=== PATIENT | female | born 2000 | race American Indian/Alaskan Native ===

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

== ENCOUNTER 2021-05-03 17:38 | Emergency (ER) | payer MEDICAID ==
[2021-05-03 18:20] VITALS: BP 138/85
[2021-05-03] MEDS ORDERED: SODIUM CHLORIDE 0.9% 1000 ML 1,000 ML IV ONE (19:47)
--- NOTE | 2021-05-03 19:54 | Emergency Department Report ---
ED General Adult HPI - General Chief complaint: Abdominal Pain Stated complaint: SHARP PAIN IN STOMACH Time Seen by Provider: 05/03/21 18:56 Source: patient Mode of arrival: Ambulatory Limitations: No Limitations - History of Present Illness Initial comments: 21-year-old female patient presents to the emergency department with complaints of diffuse lower abdominal pain, vaginal discharge, and painful sexual intercourse with associated vaginal bleeding starting 3 days ago. No history of similar symptoms. No preceding trauma. Patient's last menstrual cycle ended last week prior to the onset of current symptoms. No known sick contacts. No current steroid or antibiotic use. No recent travel. Patient did not take any medications prior to arrival. Patient has no known history of genitourinary infections. Denies fever, chills, nausea, vomiting, back pain, urinary symptoms. Denies all other complaints at this time. - Related Data Previous Rx's Medication Instructions Recorded Last Taken Type Famotidine [Pepcid] 20 mg PO DAILY #5 tablet 12/11/18 Unknown Rx diphenhydrAMINE [Benadryl CAP] 25 mg PO Q8HR PRN #20 capsule 12/11/18 Unknown Rx predniSONE [Deltasone] 20 mg PO DAILY #5 tablet 12/11/18 Unknown Rx Doxycycline Hyclate 100 mg PO BID 14 Days tablet. 05/03/21 Unknown Rx Naproxen 500 mg PO BID #20 tablet 05/03/21 Unknown Rx metroNIDAZOLE [Flagyl] 500 mg PO Q12HR 14 Days tab 05/03/21 Unknown Rx Allergies Allergy/AdvReac Type Severity Reaction Status Date / Time No Known Allergies Allergy Verified 02/28/17 21:53 ED Review of Systems ROS: Stated complaint: SHARP PAIN IN STOMACH Other details as noted in HPI Other: GENERAL: Negative for fever, chills, weight change, anorexia, fatigue. ENT: Negative for ear pain, difficulty hearing, sore throat, nasal congestion, epistaxis. CARDIOVASCULAR: Negative for chest pain, palpitations, lower extremity swelling. PULMONARY: Negative for cough, dyspnea, wheezing, orthopnea, cyanosis. GASTROINTESTINAL: Negative for abdominal pain, nausea, vomiting, diarrhea, constipation. GENITOURINARY: Positive for pelvic pain, vaginal bleeding, vaginal discharge, painful sexual intercourse. MUSCULOSKELETAL: Negative for joint pain, joint swelling, myalgias, back pain, neck pain. NEUROLOGICAL: Negative for headache, seizure, syncope, paresthesias, weakness. INTEGUMENTARY: Negative for erythema, rash, diaphoresis, laceration, ecchymosis. HEMATOLOGICAL: Negative for hemoptysis, hematemesis, hematochezia, hematuria. PSYCHIATRIC: Negative for hallucinations, suicidal ideation, homicidal ideation, anxiety, depression. ED Past Medical Hx - Past Medical History Previous Medical History?: No - Surgical History Past Surgical History?: No - Social History Smoking Status: Never Smoker Substance Use Type: Alcohol - Medications Home Medications: Home Medications Medication Instructions Recorded Confirmed Last Taken Type Famotidine [Pepcid] 20 mg PO DAILY #5 tablet 12/11/18 Unknown Rx diphenhydrAMINE [Benadryl CAP] 25 mg PO Q8HR PRN #20 capsule 12/11/18 Unknown Rx predniSONE [Deltasone] 20 mg PO DAILY #5 tablet 12/11/18 Unknown Rx Doxycycline Hyclate 100 mg PO BID 14 Days tablet. 05/03/21 Unknown Rx Naproxen 500 mg PO BID #20 tablet 05/03/21 Unknown Rx metroNIDAZOLE [Flagyl] 500 mg PO Q12HR 14 Days tab 05/03/21 Unknown Rx ED Physical Exam - General Limitations: No Limitations - Other Other exam information: General: Awake and alert. No acute distress. Head: Atraumatic, normocephalic. Eyes: EOMI. Pupils are equal and round. Normal sclera and conjunctiva. ENT: Oral mucosa is moist. Normal pharyngeal exam. Neck: Supple. No lymphadenopathy. Pulmonary: No respiratory distress. Clear to auscultation bilaterally. Cardiac: tachycardic. Pulses are palpable and equal bilaterally. No lower extremity cyanosis or edema. Skin: Warm and dry. No rashes. Abdomen: Soft, non-protuberant. Diffuse lower abdominal tenderness without guarding, rigidity, or rebound. Bowel sounds are normal. No organomegaly or masses noted. 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 Normal external inspection. Cervical os is closed. There is no cervical motion tenderness. No blood in the vaginal vault. Thin white discharge present. There is bilateral adenexal tenderness. No uterine tenderness. Back: Normal alignment. No CVA tenderness. Extremities: Symmetrical. Full range of motion intact. Neurological: Alert and oriented, appropriately interactive, no focal deficits. Psych: Cooperative. Appropriate mood and affect. Speech is evenly metered. Thoughts are logically construed. ED Course Vital Signs 05/03/21 18:16 Temperature 98.4 F Pulse Rate 115 H Respiratory 18 Rate Blood Pressure 138/85 O2 Sat by Pulse 98 Oximetry ED Medical Decision Making - Lab Data Result diagrams: 05/03/21 19:34 05/03/21 19:34 - Medical Decision Making Differential diagnosis including but not limited to: pelvic inflammatory disease, ovarian torsion, tubo-ovarian abscess, salpingitis, endometriosis, uterine fibroids, On reevaluation, patient remains febrile. Repeat abdominal exam is benign. Pain is controlled. Labs show elevated WBC of 14K. Urinalysis consistent with infection. Wet prep shows < 20% clue cells. test is negative. Transvaginal ultrasound obtained due to adnexal tenderness on pelvic exam. No sonographic evidence of TOA or salpingitis. Imaging suggestive of possible underlying pelvic congestion. History and exam findings concerning for pelvic inflammatory disease. STD testing currently unavailable at this facility. Treated empirically with Rocephin, Doxycycline, and Flagyl per current CDC guidelines. Patient is an appropriate candidate for outpatient management. Discharged home with antibiotic prescriptions and referral to CUTTING DEPARTMENT SUPERVISOR for close outpatient f/u. Patient instructed to bring a copy of today's ultrasound results with her to her follow-up appointment. Patient expressed understanding and is agreeable to plan of care. Disease transmission precautions discussed. Strict return precautions provided. [tachycardia] Repeat exam is unremarkable and benign. History, exam, diagnostic testing, and current condition do not suggest worrisome pathology to warrant further testing, continued ED treatment, admission, or surgical evaluation at this point. Given the low probability of a significant medical illness, it would be more likely to result in harm than benefit to perform further testing at this stage. Discussed findings, presumptive diagnosis, need for follow-up and specific signs/symptoms that should prompt immediate return to the emergency department. Instructions were explained in detail to the patient in addition to giving written discharge information. Patient expressed understanding and was given the opportunity to ask questions, all of which were satisfactorily answered prior to discharge home. Critical care attestation.: If time is entered above; I have spent that time in minutes in the direct care of this critically ill patient, excluding procedure time. ED Disposition Clinical Impression: Pelvic inflammatory disease, Bacterial vaginosis Disposition: HOME / SELF CARE / HOMELESS Is pt being admited?: No Does the pt Need Aspirin: No Condition: Stable Instructions: Abdominal Pain (ED), Pelvic Inflammatory Disease, [id number], Bacterial Vaginosis (ED) Additional Instructions: Take Tylenol every 4 hours as needed for pain. Take Naproxen twice daily as needed for pain. Take Flagyl and Doxycycline with food as directed. Do not consume any alcohol or alcohol-containing products while taking Flagyl. Limit sun exposure while taking Doxycycline. Follow up with metal patternmaker apprentice this week. Call tomorrow to schedule an appointment. See referral information below. Bring a copy of today's results with you t your follow-up appointment. Return to the emergency department immediately for new or worsening symptoms. Prescriptions: Doxycycline Hyclate 100 mg PO BID 14 Days tablet. metroNIDAZOLE [Flagyl] 500 mg PO Q12HR 14 Days tab Naproxen 500 mg PO BID #20 tablet Referrals: SYLVIA ESCALANTE MD [Staff Physician] - 3-5 Days Forms: [facility] and Prevention Time of Disposition: 22:22
[2021-05-03 19:57] LABS: Bilirubin,Urine SM (Negative); Blood,Urine SM (Negative); Color,Urine Amber (Yellow); Mucus,Urine 3+ /HPF
[2021-05-03 19:58] LABS: HCG Qualitative,Urine Negative (Negative)
[2021-05-03 19:58] LABS: Basophils % (Auto) 0.3 % (0.0-1.8); Eosinophils # (Auto) 0.1 K/mm3 (0.0-0.4); Eosinophils % (Auto) 0.4 % (0.0-4.3); Hematocrit 41.3 % (30.3-42.9); Lymphocytes # (Auto) 2.5 K/mm3 (1.2-5.4); Lymphocytes % (Auto) 17.1 % (13.4-35.0); Mean Corpuscular HGB Conc 34 % (30-34); Mean Corpuscular Volume 89 fl (79-97); Monocytes # (Auto) 1.1 K/mm3 (0.0-0.8); Monocytes % (Auto) 7.5 % (0.0-7.3); Platelet Count 245 K/mm3 (140-440); Red Blood Count 4.64 M/mm3 (3.65-5.03); Red Cell Distribution Width 15.2 % (13.2-15.2)
[2021-05-03] MEDS ORDERED: KETOROLAC 30 MG/1 ML INJ IV ONE (20:04)
[2021-05-03 20:05] LABS: Ictotest,Urine Positive (Negative)
[2021-05-03 20:25] LABS: Alanine Aminotransferase 13 units/L (7-56); Albumin 4.2 g/dL (3.9-5); Blood Urea Nitrogen 7 mg/dL (7-17); Hemolysis Index 7
[2021-05-03 20:26] LABS: BUN/Creatinine Ratio 10
--- NOTE | 2021-05-03 22:06 | Ultrasound Report ---
ULTRASOUND PELVIS INDICATION / CLINICAL INFORMATION: pelvic pain + discharge + adnexal tenderness TOA. TECHNIQUE: Transvaginal. Duplex Color Doppler used: Yes. COMPARISON: None available FINDINGS: UTERUS: - Appearance: No significant abnormality. - Size (cm): 6.7 x 2.7 x 3.2 - Endometrial Complex (if present): No significant abnormality.. Thickness in cm (if measured) = 0.3 - Mass or cyst: None. - Additional findings: None. RIGHT ADNEXA: No significant ovarian cyst or mass. Normal color Doppler blood flow. LEFT ADNEXA: No significant ovarian cyst or mass. Normal color Doppler blood flow. URINARY BLADDER: No significant abnormality. FREE FLUID: None. ADDITIONAL FINDINGS: There is increased vascularity to the pelvic structures. IMPRESSION: 1. Increased pelvic vascularity which can be seen with pelvic congestion syndrome. Otherwise no abnor mality. Signer Name: Shashank Alfonso DO Signed: 05/03/2021 10:02 PM Workstation Name: [email or web address]
[2021-05-03] MEDS ORDERED: LIDOCAINE-MPF (1%) 10 MG/1 ML VIAL 5 ML INFILTRATI ONE (22:09)
[2021-05-03] MEDS ORDERED: SODIUM CHLORIDE 0.9% 1000 ML 1,000 ML ONE (23:03)
[2021-05-03] MEDS ORDERED: KETOROLAC 30 MG/1 ML INJ ONE (23:04)
== END 2021-05-04 00:15 | disposition home or self-care (01) ==
LOC: ED 17:38
DX: N73.9 Female pelvic inflammatory disease, unspecified (principal); N76.0 Acute vaginitis; B96.89 Other specified bacterial agents as the cause of diseases classified elsewhere; F10.20 Alcohol dependence, uncomplicated
CPT/HCPCS: 36415; 76830; 80053; 81001; 81025; 83690; 85025; 87086; 87210; 99284; J0696; J1885; J7030

== ENCOUNTER 2021-09-15 11:49 | Emergency (ER) | payer SELFPAY ==
[2021-09-15 11:57] VITALS: BP 134/84
--- NOTE | 2021-09-15 12:42 | Emergency Department Report ---
ED Female HPI - General Chief complaint: Vaginal Bleeding Stated complaint: /BLEEDING Time Seen by Provider: 09/15/21 12:40 Source: patient Mode of arrival: Ambulatory Limitations: No Limitations - History of Present Illness Initial comments: 21 yo comes to ER with vag bleeding; had 2 pos preg tests yesterday LMP in Dec No vag discharge NO fever or chills No back pain or abd pain Has not seen obgyn yet G1 Complaint: vaginal bleeding -: Sudden Severity: mild Severity scale (0 -10): 1 Quality: cramping Consistency: intermittent Worsens with: none Are you Now?: Yes Associated Symptoms: vaginal bleeding - Related Data Sexually active: Yes : 1 Para: 0 Previous Rx's Medication Instructions Recorded Last Taken Type Amoxicillin [Trimox CAP] 500 mg PO BID #20 capsule 09/15/21 Unknown Rx Allergies Allergy/AdvReac Type Severity Reaction Status Date / Time No Known Allergies Allergy Verified 02/28/17 21:53 ED Review of Systems ROS: Stated complaint: /BLEEDING Other details as noted in HPI Comment: All other systems reviewed and negative ED Past Medical Hx - Past Medical History Previous Medical History?: No - Surgical History Past Surgical History?: No - Family History Family history: no significant - Social History Smoking Status: Never Smoker Substance Use Type: Alcohol - Medications Home Medications: Home Medications Medication Instructions Recorded Confirmed Last Taken Type Amoxicillin [Trimox CAP] 500 mg PO BID #20 capsule 09/15/21 Unknown Rx ED Physical Exam - General Limitations: No Limitations General appearance: alert, in no apparent distress - Head Head exam: Present: atraumatic, normocephalic - Eye Eye exam: Present: normal appearance - ENT ENT exam: Present: mucous membranes moist - Neck Neck exam: Present: normal inspection - Respiratory Respiratory exam: Present: normal lung sounds bilaterally. Absent: respiratory distress - Cardiovascular Cardiovascular Exam: Present: regular rate, normal rhythm. Absent: systolic murmur, diastolic murmur, rubs, gallop - GI/Abdominal GI/Abdominal exam: Present: soft, normal bowel sounds - Extremities Exam Extremities exam: Present: normal inspection - Back Exam Back exam: Present: normal inspection - Neurological Exam Neurological exam: Present: alert, oriented X3 - Psychiatric Psychiatric exam: Present: normal affect, normal mood - Skin Skin exam: Present: warm, dry, intact, normal color. Absent: rash ED Course Vital Signs 09/15/21 11:56 Temperature 98.9 F Pulse Rate 96 H Respiratory 18 Rate Blood Pressure 134/84 O2 Sat by Pulse 97 Oximetry ED Medical Decision Making - Lab Data Result diagrams: 09/15/21 13:09 09/15/21 13:09 - Radiology Data Radiology results: report reviewed, image reviewed see report - Medical Decision Making Labs 09/15/21 09/15/21 09/15/21 13:09 13:09 13:09 WBC 7.2 RBC 4.49 Hgb 13.1 Hct 39.0 MCV 87 MCH 29 MCHC 34 RDW 16.2 H Plt Count 220 Lymph % (Auto) 22.9 [place] % (Auto) 9.1 H Eos % (Auto) 0.6 Baso % (Auto) 0.3 Lymph # (Auto) 1.7 [place] # (Auto) 0.7 Eos # (Auto) 0.0 Baso # (Auto) 0.0 Seg Neutrophils % 67.1 Seg Neutrophils # 4.9 Sodium 133 L Potassium 4.3 Chloride 97.9 L Carbon Dioxide 20 L Anion Gap 19 BUN 6 L Creatinine 0.6 Estimated GFR > 60 BUN/Creatinine Ratio 10 Glucose 92 Calcium 10.0 Urine Color Urine Turbidity Urine pH Ur Specific [place] Urine Protein Urine Glucose (UA) Urine Ketones Urine Blood Urine Nitrite Urine Bilirubin Urine Urobilinogen Ur Leukocyte Esterase Urine WBC (Auto) Urine RBC (Auto) U Epithel Cells (Auto) Blood Type A [facility] Rh pos 09/15/21 Unknown WBC RBC Hgb Hct MCV MCH MCHC RDW Plt Count Lymph % (Auto) [place] % (Auto) Eos % (Auto) Baso % (Auto) Lymph # (Auto) [place] # (Auto) Eos # (Auto) Baso # (Auto) Seg Neutrophils % Seg Neutrophils # Sodium Potassium Chloride Carbon Dioxide Anion Gap BUN Creatinine Estimated GFR BUN/Creatinine Ratio Glucose Calcium Urine Color Yellow Urine Turbidity Clear Urine pH 8.0 H Ur Specific [place] 1.009 Urine Protein <15 mg/dl Urine Glucose (UA) Neg Urine Ketones Tr Urine Blood Neg Urine Nitrite Neg Urine Bilirubin Neg Urine Urobilinogen < 2.0 Ur Leukocyte Esterase Mod Urine WBC (Auto) 3.0 Urine RBC (Auto) < 1.0 U Epithel Cells (Auto) < 1.0 Blood Type Ord [facility] Weeks Labs noted. UA noted. Urine has reflex to culture. Patient being started on amoxicillin. Ultrasound noted. Patient being discharged to home with discharge plan of care. She understands that she needs to see an [employer] in 48 hours for recheck of her ultrasound and her beta quant. [employer] [facility] referral given. Patient instructed that she can use Tylenol for pain. She should avoid drugs and alcohol. Patient verbalizes understanding of discharge plan of care. On discharge patient ambulatory, nonill nontoxic appearing. She is taking p.o. without difficulty. - Differential Diagnosis ro ab/uti Critical care attestation.: If time is entered above; I have spent that time in minutes in the direct care of this critically ill patient, excluding procedure time. ED Disposition Clinical Impression: Vaginal bleeding during UTI (urinary tract infection) Qualifiers: Urinary tract infection type: site unspecified Disposition: 01 HOME / SELF CARE / HOMELESS Is pt being admited?: No Does the pt Need Aspirin: No Condition: Stable Instructions: Threatened Miscarriage, Vaginal Bleeding During , First Trimester Additional Instructions: follow up with obgyn in 48 hours for recheck referral below stay well hydrated tylenol for pain no alcohol or drugs pelvic rest meds as ordered for uti your urine will need rechecked Prescriptions: Amoxicillin [Trimox CAP] 500 mg PO BID #20 capsule Referrals: MAYITO ARCHULETA MD [Staff Physician] - 3-5 Days Time of Disposition: 14:39
[2021-09-15 13:43] LABS: Basophils % (Auto) 0.3 % (0.0-1.8); Eosinophils % (Auto) 0.6 % (0.0-4.3); Hemoglobin 13.1 gm/dl (10.1-14.3); Lymphocytes # (Auto) 1.7 K/mm3 (1.2-5.4); Lymphocytes % (Auto) 22.9 % (13.4-35.0); Mean Corpuscular HGB Conc 34 % (30-34); Mean Corpuscular Volume 87 fl (79-97); Monocytes # (Auto) 0.7 K/mm3 (0.0-0.8); Monocytes % (Auto) 9.1 % (0.0-7.3); Platelet Count 220 K/mm3 (140-440); Red Blood Count 4.49 M/mm3 (3.65-5.03); Red Cell Distribution Width 16.2 % (13.2-15.2)
--- NOTE | 2021-09-15 14:09 | Ultrasound Report ---
ULTRASOUND OBSTETRIC Indication: Vaginal bleeding Findings: There is a single, living intrauterine . Yolk sac is visualized. [place]-rump length = 0.52 cm = 6 weeks, 2 day(s). heart rate is 117 beats per minute. There is a 1.6 cm right ovarian cyst. Left ovary is unremarkable. No adnexal lesions are seen. There is no free fluid. Impression: Single, living intrauterine with estimated sonographic age of 6 weeks, 2 day(s) by crown-ru mp length. Signer Name: Jose Rafael Martinez MD Signed: 09/15/2021 2:04 PM Workstation Name: [id number]
[2021-09-15 14:16] LABS: Blood Urea Nitrogen 6 mg/dL (7-17); Hemolysis Index 5
[2021-09-15 14:25] LABS: BUN/Creatinine Ratio 10
[2021-09-15 14:34] LABS: Bilirubin,Urine NEG (Negative); Blood,Urine NEG (Negative); Color,Urine Yellow (Yellow); Protein,Urine <15 mg/dL mg/dL (Negative); RBC,Urine < 1.0 /HPF (0.0-6.0); Urobilinogen,Urine < 2.0 mg/dL (<2.0)
== END 2021-09-15 15:11 | disposition home or self-care (01) ==
LOC: ED 11:49
DX: O46.91 Antepartum hemorrhage, unspecified, first trimester (principal); N39.0 Urinary tract infection, site not specified
CPT/HCPCS: 36415; 76801; 80048; 81001; 84702; 85025; 86900; 86901; 87086; 99284

== ENCOUNTER 2022-05-08 19:58 | Emergency (ER) | payer SELFPAY ==
[2022-05-08 23:01] VITALS: BP 139/75
== END 2022-05-09 11:19 | disposition left against medical advice (07) ==
LOC: ED 19:58
DX: T50.901A Poisoning by unspecified drugs, medicaments and biological substances, accidental (unintentional), initial encounter (principal); Z53.21 Procedure and treatment not carried out due to patient leaving prior to being seen by health care provider; Y92.89 Other specified places as the place of occurrence of the external cause